=== PATIENT | female | born 1990 | race Caucasian/White ===

== ENCOUNTER 2018-03-29 10:24 | Day surgery (SDC) | payer OTHER ==
[2018-03-29 10:36] VITALS: BMI 31.3
[2018-03-29] MEDS ORDERED: DIPHTH,PERTUSS(ACELL),TET 0.5 ML DISP.SYRIN IM ONE (10:39)
--- NOTE | 2018-03-29 10:48 | PDOC ---
History of Present Illness - General Chief Complaint: Injury Stated Complaint: LACERATED RT FINGER Time Seen by Provider: 03/29/18 10:37 History Source: Patient Exam Limitations: No Limitations - History of Present Illness Initial Comments: 03/29/18 10:37 Laceration to right ring and pinky fingers approximately 12 hours ago, states was cutting onions holding with her right hand/dominant slipped and incised fourth and fifth digits volar aspect. Patient states distending fingers. But sensation appears intact. 03/29/18 11:06 Occurred: reports: this morning (approximate 10 hours ago) Severity: reports: moderate Pain Location: reports: upper extremity (4,5th digits) Past History - Travel Traveled outside of the country in the last 30 days: No Close contact w/someone who was outside of country & ill: No - Past Medical History Allergies/Adverse Reactions: Allergies Allergy/AdvReac Type Severity Reaction Status Date / Time No Known Allergies Allergy Verified 03/29/18 10:35 Home Medications: Ambulatory Orders Naproxen [Naprosyn -] 500 mg PO BID PRN #14 tablet 08/10/14 Sertraline HCl [Zoloft -] 50 mg PO DAILY 08/10/14 COPD: No - Immunization History Immunization Up to Date: Yes - Suicide/Smoking/Psychosocial Hx Smoking History: Current every day smoker Number of Cigarettes Smoked Daily: 3 Information on smoking cessation initiated: No Hx Alcohol Use: Yes Review of Systems - Review of Systems Able to Perform ROS?: Yes Is the patient limited Cymraes proficient: Yes Constitutional: Yes: Symptoms Reported, See HPI, Malaise HEENTM: No: Symptoms Reported Musculoskeletal: Yes: Symptoms Reported, See HPI, Joint Pain Integumentary: Yes: Symptoms Reported, See HPI, Lesions (laceration 4,5) All Other Systems: Reviewed and Negative *Physical Exam - Vital Signs Last Vital Signs Temp Pulse Resp BP Pulse Ox 98 F 91 H 18 119/76 100 03/29/18 10:32 03/29/18 10:32 03/29/18 10:32 03/29/18 10:32 03/29/18 10:32 - Physical Exam General Appearance: Yes: Nourished, Appropriately Dressed, Apparent Distress, Mild Distress HEENT: positive: RAEGAN, Normal ENT Inspection, TMs Normal, Pharynx Normal Neck: positive: Supple Respiratory/Chest: positive: Lungs Clear Gastrointestinal/Abdominal: positive: Soft Musculoskeletal: positive: Normal Inspection Extremity: positive: Normal Range of Motion, Tender Integumentary: positive: Pale, Other (laceration to right fifth and fourth digit volar aspect 1 cm each. Range of motion is limited secondary to pain but is able to flex and extend. 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 Patient is unable to flex and extend fourth digit after PIP and has limited range of motion to fifth digit. Case was discussed with Dr. Anderson who will evaluate patient *DC/Admit/Observation/Transfer Diagnosis at time of Disposition: Laceration of finger of right hand Qualifiers: Encounter type: initial encounter Finger: ring finger Damage to nail status: without damage Foreign body presence: without foreign body Qualified Code(s): S61.214A - Laceration without foreign body of right ring finger without damage to nail, initial encounter - Discharge Dispostion Disposition: HOME Condition at time of disposition: Stable Decision to Admit order: No - Referrals - Patient Instructions Printed Discharge Instructions: DI for Laceration Repair -- Finger Additional Instructions: Rest, elevate, avoid strenuous activity or heavy lifting until sutures are removed Leave dressing on for the next 24 hours, Then may remove dressing gently and wash area with soap and water. Reapply bacitracin ointment and dressing daily for the next 5 days On day #6 keep the wound protected and cover as needed until sutures are removed allowing wound to start to dry May use Tylenol or Motrin for pain relief Suture removal in :10 -12 Days - Post Discharge Activity Forms/Work/School Notes: Back to Work
[2018-03-29 12:53] LABS: BASO % 0.4 % (0-2.0); EOS % 1.6 % (0-4.5); HEMATOCRIT 36.1 % (32.4-45.2); HEMOGLOBIN 12.2 GM/dL (10.7-15.3); LYMPH % 20.6 % (8-40); MCH 28.5 pg (25.7-33.7); MCHC 33.9 g/dl (32.0-36.0); MEAN PLT VOLUME 9.9 fl (7.5-11.1); MONO % 6.7 % (3.8-10.2); NEUT % 70.7 % (42.8-82.8); PLATELET COUNT 261 K/MM3 (134-434); RBC 4.29 M/mm3 (3.60-5.2); RDW 12.9 % (11.6-15.6); WHITE BLOOD COUNT 11.3 K/mm3 (4.0-10.0)
--- NOTE | 2018-03-29 12:54 | HP ---
Admitting History and Physical - Admission Chief Complaint: right hand laceration History of Present Illness: 27yo RHD female PMH 12weeks laceration of right ring and small fingers 12 hours ago while cutting onions. There was not significant blood loss and there is loss of flexion in the ring and small fingers. We were asked to assess and treat. History Source: Patient, Medical Record Limitations to Obtaining History: No Limitations - Smoking History Smoking history: Current every day smoker Aproximately how many cigarettes per day: 3 - Alcohol/Substance Use Hx Alcohol Use: Yes Home Medications - Allergies Allergies/Adverse Reactions: Allergies Allergy/AdvReac Type Severity Reaction Status Date / Time No Known Allergies Allergy Verified 03/29/18 10:35 - Home Medications Home Medications: Ambulatory Orders Naproxen [Naprosyn -] 500 mg PO BID PRN #14 tablet 08/10/14 Sertraline HCl [Zoloft -] 50 mg PO DAILY 08/10/14 Review of Systems - Review of Systems Constitutional: denies: Chills, Fever Eyes: denies: Blurred Vision, Recent Change in Vision HENT: denies: Difficult Swallowing, Throat Pain Neck: denies: Decreased ROM, Pain on Movement Cardiovascular: denies: Chest Pain, Palpitations Respiratory: denies: Cough, SOB Gastrointestinal: denies: Abdominal Pain, Constipation, Vomiting Genitourinary: denies: Burning, Discharge, Dysuria Breasts: reports: No Symptoms Reported. denies: Pain Musculoskeletal: denies: Back Pain, Muscle Pain, Muscle Weakness Integumentary: denies: Lesions, Rash Neurological: denies: Syncope, Tremors Endocrine: denies: Unexplained Weight Gain, Unexplained Weight Loss Hematology/Lymphatic: denies: Easily Bruised, Excessive Bleeding Psychiatric: denies: Anxiety, Depression Physical Examination Vital Signs: Vital Signs Temperature 98 F 03/29/18 10:32 Pulse Rate 91 H 03/29/18 10:32 Respiratory Rate 18 03/29/18 10:32 Blood Pressure 119/76 03/29/18 10:32 O2 Sat by Pulse Oximetry (%) 100 03/29/18 10:32 Constitutional: Yes: No Distress, Calm Eyes: Yes: Conjunctiva Clear, EOM Intact HENT: Yes: Atraumatic, Normocephalic Neck: Yes: Supple, Trachea Midline Cardiovascular: Yes: Regular Rate and Rhythm, S1, S2 Respiratory: Yes: Regular, CTA Bilaterally Gastrointestinal: Yes: Normal Bowel Sounds, Soft. No: Tenderness ...Rectal Exam: Yes: Deferred Renal/: No: CVA Tenderness - Left, CVA Tenderness - Right Extremities: Yes: Other (laceration zone 2 of ring and small fingers). No: Cool , Cyanosis Edema: No Peripheral Pulses WNL: Yes Peripheral Pulses: Left Radial: 2+, Right Radial: 2+, Left Doralis Pedis: 2+, Right Dorsalis Pedis: 2+ Wound/Incision: Yes: Other (volar right ring and small zone 2 full extension with aoute normal resting tenodesis). No: Draining, Reddened, Bleeding Neurological: Yes: Alert, Oriented Psychiatric: Yes: Alert, Oriented Problem List - Problems (1) Flexor tendon laceration, finger, open wound Assessment/Plan: 27yo female PMH laceration of right ring and small fingers zone 2 100% NPO and IVF hydration IV antibiotics Discussed with patient risks, benefits and alternatives of exploration and repair of right ring and small fingers, including but not limited to bleeding, infection, injury to adjacent structures, loss of function, amputation, need for further procedures, ; alternatives include antibiotics, delayed or no surgery - risks of this include failure of nonoperative therapy, loss of fucntion, sepsis, recurrence, . Patient desires to proceed with operation - will take to OR for above. Informed consent signed for same. Thank you for the opportunity to participate in the care of this patient. Code(s): S56.129A - LACERAT FLEXOR MUSC/FASC/TEND UNSP FINGER AT FORARM LV, INIT ; S61.209A - UNSP OPEN WOUND OF UNSP FINGER W/O DAMAGE TO NAIL, INIT Qualifiers: Encounter type: initial encounter Qualified Code(s): S56.129A - Laceration of flexor muscle, fascia and tendon of unspecified finger at forearm level, initial encounter; S61.209A - Unspecified open wound of unspecified finger without damage to nail, initial encounter (2) Laceration of ring finger Code(s): S61.218A - LACERATION W/O FB OF FINGER W/O DAMAGE TO NAIL, INIT Qualifiers: Encounter type: initial encounter Laterality: right (3) Laceration of little finger Code(s): S61.218A - LACERATION W/O FB OF FINGER W/O DAMAGE TO NAIL, INIT Qualifiers: Encounter type: initial encounter Laterality: right (4) Laceration of finger of right hand Code(s): S61.219A - LACERATION W/O FB OF UNSP FINGER W/O DAMAGE TO NAIL, INIT Qualifiers: Encounter type: initial encounter Finger: ring finger Damage to nail status: without damage Foreign body presence: without foreign body Qualified Code(s): S61.214A - Laceration without foreign body of right ring finger without damage to nail, initial encounter (5) Low back strain Code(s): S39.012A - STRAIN OF MUSCLE, FASCIA AND TENDON OF LOWER BACK, INIT
--- NOTE | 2018-03-29 13:09 | OP ---
Operative Note - Note: Operative Date: 03/29/18 Pre-Operative Diagnosis: laceration of right ring and small fingers zone 2 Operation: exploration of right ring and small finger lacerations, repair of flexor tendons zone 2 (Flexor digitorum profundus and superficialis) Findings: 100% lacerations Right Ring and Small fingers FDS and FDP tendons all repaired modified grayson with 2-0 ethibond and proline 6-0 epitendonous repair Post-Operative Diagnosis: Same as Pre-op Surgeon: Yomi Anderson Anesthesiologist/EMPLOYEE DEVELOPMENT DIRECTOR: Tomasz Portillo Anesthesia: Local (scalene block) Estimated Blood Loss (mls): 2 Fluid Volume Replaced (mls): 400 Operative Report Dictated: Yes
[2018-03-29 13:10] LABS: INR 1.09 (0.82-1.09); PROTHROMBIN TIME (PATIENT) 12.3 SEC (9.7-13.0)
[2018-03-29 13:13] LABS: ACTIVATED PTT 24.3 SECONDS (25.2-36.5)
[2018-03-29 13:17] LABS: ALBUMIN 3.4 g/dl (3.4-5.0); ALK PHOS 85 U/L (45-117); ANION GAP 6 (8-16); BILIRUBIN,TOTAL 0.3 mg/dL (0.2-1.0); BLOOD UREA NITROGEN 6 mg/dL (7-18); CALCIUM 9.2 mg/dL (8.5-10.1); CHLORIDE 107 mmol/L (98-107); CO2 25 mmol/L (21-32); CREATININE 0.5 mg/dL (0.55-1.02); GLUCOSE,RANDOM 80 mg/dL (74-106); SGOT/AST 19 U/L (15-37); SGPT/ALT 33 U/L (12-78); SODIUM 138 mmol/L (136-145); TOT PROT 7.2 g/dl (6.4-8.2)
[2018-03-29] MEDS ORDERED: DEXAMETHASONE SOD PHOSPHATE/PF 10 MG/ML SDV ONE (14:24)
[2018-03-29] MEDS ORDERED: BUPIVACAINE HCL/PF 0.5% (5MG/ML) 10 ML VIAL ONE (14:24)
--- NOTE | 2018-03-29 14:28 | DS ---
Physical Examination Vital Signs: Vital Signs Temperature 98.1 F 03/29/18 12:18 Pulse Rate 88 03/29/18 12:18 Respiratory Rate 18 03/29/18 12:18 Blood Pressure 111/66 03/29/18 12:18 O2 Sat by Pulse Oximetry (%) 99 03/29/18 12:18 Vital Signs Period Temp Pulse Resp BP Sys/Barrientos Pulse Ox Last 24 Hr 98 F-98.1 F 88-91 18-18 111-119/66-76 99-100 Constitutional: Yes: Well Nourished, No Distress, Calm Eyes: Yes: Conjunctiva Clear, EOM Intact HENT: Yes: Atraumatic, Normocephalic Neck: Yes: Supple, Trachea Midline Cardiovascular: Yes: Regular Rate and Rhythm, S1, S2 Respiratory: Yes: Regular, CTA Bilaterally Gastrointestinal: Yes: Normal Bowel Sounds, Soft. No: Tenderness ...Rectal Exam: Yes: Deferred Renal/: No: CVA Tenderness - Left, CVA Tenderness - Right Musculoskeletal: No: Muscle Pain, Muscle Weakness Extremities: No: Cool, Cyanosis Edema: No Peripheral Pulses WNL: Yes Peripheral Pulses: Left Radial: 2+, Right Radial: 2+, Left Doralis Pedis: 2+, Right Dorsalis Pedis: 2+ Wound/Incision: Yes: Clean/Dry, Well Approximated, Sutures Intact, Dressing Dry and Intact (Right arm dorsal blocking splint, with tension bands.). No: Draining, Reddened, Bleeding Neurological: Yes: Alert, Oriented Psychiatric: Yes: Alert, Oriented Labs: CBC, BMP 03/29/18 12:26 03/29/18 12:26 Discharge Summary Reason For Visit: FLEXOR TENDON LACERATION OF FINGER WITH OPEN WOUND Current Active Problems Flexor tendon laceration, finger, open wound (Acute) Laceration of finger of right hand (Acute) Laceration of little finger (Acute) Laceration of ring finger (Acute) Procedures: Principal: right ring and small finger exploration and repair of flexor tendons Hospital Course: admitted from the emergency department for urgent surgery. uneventful operative procedure. stable for discharge home. Condition: Improved - Instructions Diet, Activity, Other Instructions: Postoperative instructions: You had a Repair of flexor tendons right ring and small fingers on 03/29/[address] Yomi Anderson of [facility]. Activity: Resume your usual activities gradually, but no heavy exertion or lifting more than 10-15 pounds for 4-6 weeks. Please keep splint clean and dry until first followup appointment in 2 weeks. You may shower daily, with the splint covered. Sutures will need to be recovered in clinic. Eat lightly at first, but advance to your usual diet as tolerated. Pain: For pain, you may use and alternate Tylenol (acetaminophen) and/or ibuprofen every 6 hours each as needed; this means that you can take one OR the other at 3-hour intervals. If you are prescribed a Tylenol/narcotic combination for severe pain, use it instead of plain Tylenol as needed and switch back when your pain starts decreasing. Do not take more than 4000mg of acetaminophen in a day. Take medications as prescribed or indicated on the labeling. Follow-up: Call Dr. Anderson' office at [phone] to make your postop appointment (Saturday 1-2 weeks after surgery as advised). Clinic is held in the [facility] on the first floor of [facility]. Call the office if you have: * increasing pain not responsive to pain medication * fever of 101F or higher * unusual or increasing bleeding or drainage from wounds * increasing redness or swelling at wound sites Also, see your primary medical doctor within 1-2 weeks. Disposition: HOME - Home Medications Comprehensive Discharge Medication List: Ambulatory Orders Naproxen [Naprosyn -] 500 mg PO BID PRN #14 tablet 08/10/14 Sertraline HCl [Zoloft -] 50 mg PO DAILY 08/10/14 Amox-Tr/K Cl [Augmentin - 875Mg Tablet] 1 tab PO BID #14 tablet 03/29/18
[2018-03-29] MEDS ORDERED: LACTATED RINGERS SOLUTION 1,000 ML IV SCH (17:45)
[2018-03-29] MEDS ORDERED: ceFAZolin SODIUM 1 GM VIAL IVPB ONE (18:20)
[2018-03-29] MEDS ORDERED: SODIUM CHLORIDE 0.9% P/F 10 ML VIAL IJ ONE (18:26)
[2018-03-29] MEDS ORDERED: ceFAZolin SODIUM 1 GM VIAL ONE (18:26)
[2018-03-29 22:12] VITALS: BP 134/85; PULSE 95; TEMP 98.2
--- NOTE | 2018-03-31 23:11 | OP ---
DATE OF OPERATION: 03/29/2018 PREOPERATIVE DIAGNOSIS: Laceration, right ring and small finger, zone II. POSTOPERATIVE DIAGNOSIS: Laceration, right ring and small finger, zone II. PROCEDURE: Exploration, right ring finger and small finger lacerations; primary repair of flexor tendon, zone II, including flexor digitorum profundus and flexor digitorum superficialis for those digits. FINDINGS: A 100% laceration, right ring finger and small finger FDS and FDP, zone II. All repaired with modified Hanna 2-0 Ethibond as a core repair and Prolene 6-0 as an epitendinous repair. ATTENDING SURGEON: Yomi Anderson MD ACUTE CARE CERTIFIED NURSING ASSISTANT: Angelito Portillo ANESTHESIA: Extremity block, a scalene block ESTIMATED BLOOD LOSS: 2 mL TOURNIQUET TIME: 43 minutes. TOURNIQUET PRESSURE: 250 mmHg. ESTIMATED INTRAVENOUS FLUID REPLACEMENT: Intravenous fluid 400 mL. INDICATION: Patient is a 27-year-old female presenting after an accidental laceration of right ring and small fingers while cutting an onion in her hand. She presented 12 hours after the injury; was counseled regarding risks, benefits, and alternatives to surgical repair; signed informed consent; was taken for the procedure. DESCRIPTION OF PROCEDURE: Patient was brought to the operating room. She was placed in supine position on the operating table with the right arm extended at 90 degrees perpendicular to the body's midline axis. Areas overlying the right ring and small fingers were prepped and draped into a standard surgical field. Patient had SCDs on lower extremities bilaterally, received intravenous antibiotics. A formal timeout was completed, identifying the operative site and digits. Once completed and with all parties in agreement, I began first with a volar Stan's-type incision scribed over the ring and small fingers with the 15-blade scalpel. With the arm exsanguinated, an incision was made through and through the Stan's incision, opening the flexor tendon. Stay stitches were placed along the flaps to allow for clean midline visualization of the axis of the digit. Time was then taken to inspect the miki system. There appeared to be a laceration through and through the cruciate. The cruciate pulleys 2 and 3. These cruciate incisions were debrided. Accessing the tendon with the ring finger flexed at the distal interphalangeal joint, the distal aspect of the tendon was identified. The FDP was repaired using a 6-0 Prolene as it inserted on the volar plate of the proximal interphalangeal joint. Once this was completed, there was a core repair of the flexor digitorum profundus tendon to its distal aspect using a modified Hanna stitch, laying in the core repair, followed by the 6-0 Prolene for an epitendinous repair. This was done in continuous fashion. After complete, the normal resting tenodesis was restored to the ring finger, we turned our attention to the small finger. In similar fashion, the Stan's incision was opened along the midline axis. The neurovascular bundles were inspected and appeared to be intact. However, the flexor tendon in zone II was lacerated 100%. In similar fashion, the cruciate pulleys were debrided, leaving the second and third annular pulleys in place. Care was then taken to flex the digit at the distal interphalangeal joint, the distal aspect of the profundus tendon. After a core repair of a modified Hanna was laid in and epitendinous repair of 6-0 Prolene in continuous fashion, the flexor digitorum superficialis tendon was then repaired using 6-0 Prolene deep to this repair with the finger flexed to restore its normal anatomy as it inserted on the volar plate. Care was then taken to irrigate both sites and close the skin with 4-0 nylon in interrupted fashion along the length of the Stan's incision. The patient then had sterile dressings placed including Xeroform over the repair, rolled gauze with web space protection. A dorsal flexor-blocking splint was placed to mid forearm, excluding the thumb, index, and middle fingers for function. The tips of the fingers through the nail plate had number 1 Prolene inserted to allow for flexion tension, and these bands were placed post splint placement to flex the digit at the proximal interphalangeal joint and distal in function. Patient was awoken from general anesthesia, having tolerated the procedure well; was given instructions to follow up in a period of 2 weeks. MD VANDANA Gonzalez/[id number]
== END 2018-03-29 21:50 | disposition home or self-care (01) ==
LOC: JER 10:24 → JASUSAT 12:16 → J8W 21:34 → UNDOADMIN 21:34 → UNDODISIN 21:50 → JASUSAT 21:50
PROC: 0LQ70ZZ Repair Right Hand Tendon, Open Approach (ICD-10-PCS; 2018-03-29)
PROC: 0LQ70ZZ Repair Right Hand Tendon, Open Approach (ICD-10-PCS; 2018-03-29)
PROC: 0LQ70ZZ Repair Right Hand Tendon, Open Approach (ICD-10-PCS; 2018-03-29)
PROC: 0LQ70ZZ Repair Right Hand Tendon, Open Approach (ICD-10-PCS; principal; 2018-03-29 17:46)
DX: S66.124A Laceration of flexor muscle, fascia and tendon of right ring finger at wrist and hand level, initial encounter (principal); S66.126A Laceration of flexor muscle, fascia and tendon of right little finger at wrist and hand level, initial encounter; X58.XXXA Exposure to other specified factors, initial encounter; Y93.9 Activity, unspecified; Y92.9 Unspecified place or not applicable
CPT/HCPCS: 36415; 80053; 85025; 85610; 85730; 94760; 99283-25

== ENCOUNTER 2018-09-22 18:05 | Inpatient (IN) | payer OTHER ==
[2018-09-22] MEDS ORDERED: AMPICILLIN - 2 GM in SODIUM CHLORIDE 100 ML IVPB ONE (18:30)
[2018-09-22] MEDS ORDERED: AMPICILLIN SODIUM 2 GM VIAL ONE (18:33)
[2018-09-22] MEDS ORDERED: ELECTROLYTE-148 SOLN 1,000 ML IV SCH (18:45)
[2018-09-22] MEDS ORDERED: TUBERCULIN PPD 5 TU/0.1ML SYRINGE (IN PATIENT USE ONLY) ID ONE (19:00)
[2018-09-22] MEDS: ELECTROLYTE-148 SOLN 1,000 ML IV SCH (19:00)
[2018-09-22 19:07] VITALS: BMI 35.4
[2018-09-22 20:02] LABS: BASO % 0.3 % (0-2.0); EOS % 1.5 % (0-4.5); HEMATOCRIT 36.7 % (32.4-45.2); HEMOGLOBIN 12.7 GM/dL (10.7-15.3); LYMPH % 18.5 % (8-40); MCH 28.3 pg (25.7-33.7); MCHC 34.6 g/dl (32.0-36.0); MEAN CELL VOLUME 81.9 fl (80-96); MEAN PLT VOLUME 11.2 fl (7.5-11.1); NEUT % 70.7 % (42.8-82.8); PLATELET COUNT 189 K/MM3 (134-434); RBC 4.48 M/mm3 (3.60-5.2); RDW 14.7 % (11.6-15.6); WHITE BLOOD COUNT 11.1 K/mm3 (4.0-10.0)
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
[2018-09-22] MEDS ORDERED: BUTORPHANOL TARTRATE 1 MG/ML VIAL ONE ×2 (20:18)
[2018-09-22] MEDS ORDERED: PROMETHAZINE HCL 25 MG/1 ML VIAL ONE (20:18)
[2018-09-22] MEDS ORDERED: BUTORPHANOL TARTRATE 1 MG/ML VIAL IVPUSH ONE (20:21)
[2018-09-22] MEDS ORDERED: PROMETHAZINE HCL 25 MG/1 ML VIAL IVPB ONE (20:21)
[2018-09-22 20:25] LABS: INR 0.92 (0.83-1.09); PROTHROMBIN TIME (PATIENT) 10.8 SEC (9.7-13.0)
[2018-09-22 20:27] LABS: ACTIVATED PTT 22.8 SECONDS (25.2-36.5)
[2018-09-22 20:38] LABS: ANION GAP 7 MMOL/L (8-16); BLOOD UREA NITROGEN 10 mg/dL (7-18); CALCIUM 8.8 mg/dL (8.5-10.1); CHLORIDE 108 mmol/L (98-107); CO2 23 mmol/L (21-32); CREATININE 0.8 mg/dL (0.55-1.3); GLUCOSE,RANDOM 73 mg/dL (74-106); POTASSIUM 4.1 mmol/L (3.5-5.1); SODIUM 139 mmol/L (136-145)
[2018-09-22] MEDS ORDERED: OXYTOCIN 30 UNITS in 0.9% NS 30 UNIT/500 ML INFUS.BAG IVPB ONE (21:57)
[2018-09-22] MEDS ORDERED: AMPICILLIN SODIUM 1 GM VIAL ONE (22:02)
[2018-09-22] MEDS: OXYTOCIN 30 UNITS in 0.9% NS 30 UNIT/500 ML INFUS.BAG IVPB SCH (22:05)
[2018-09-22] MEDS: AMPICILLIN - 1 GM in SODIUM CHLORIDE 100 ML IVPB SCH (22:10)
[2018-09-22] MEDS ORDERED: valACYclovir HCL 1000 MG TABLET PO ONE (22:34)
[2018-09-22] MEDS ORDERED: FENTANYL/BUPIVACAINE/NS/PF - PCEA - 50 ML DISP.SYRIN EP ONE (22:35)
[2018-09-22] MEDS ORDERED: BUPIVACAINE HCL/PF 0.25% (2.5MG/ML) 10 ML VIAL ONE (22:38)
[2018-09-22] MEDS: FENTANYL/BUPIVACAINE/NS/PF - PCEA - 50 ML DISP.SYRIN EP SCH (23:00)
[2018-09-22] MEDS ORDERED: NALOXONE HCL 0.4 MG/ML VIAL IVPUSH PRN (23:23)
[2018-09-23] MEDS ORDERED: AMPICILLIN SODIUM 1 GM VIAL ONE (02:11)
[2018-09-23] MEDS: AMPICILLIN - 1 GM in SODIUM CHLORIDE 100 ML IVPB SCH ×2 (02:15→06:40)
[2018-09-23] MEDS ORDERED: FENTANYL/BUPIVACAINE/NS/PF - PCEA - 50 ML DISP.SYRIN EP ONE (03:38)
[2018-09-23] MEDS ORDERED: OXYTOCIN 20 UNITS in 0.9% NS 20 UNIT/1,000 ML INFUS.BAG IV ONE (04:35)
[2018-09-23] MEDS ORDERED: LIDOCAINE HCL 1% PRESERVATIVE FREE - 30ML VIAL ONE (04:35)
[2018-09-23] MEDS ORDERED: BISACODYL 10 MG SUPP.RECT RC PRN (05:23)
[2018-09-23] MEDS ORDERED: METHYLERGONOVINE MALEATE 0.2 MG/1 ML AMP IM PRN (05:23)
[2018-09-23] MEDS ORDERED: WITCH HAZEL 50% (TUCKS) 40 PAD/JAR PAD TP PRN (05:23)
[2018-09-23] MEDS ORDERED: BENZOCAINE 28 GM HEMORRHOIDAL OINTMENT TP PRN (05:23)
[2018-09-23] MEDS ORDERED: BENZOCAINE 20% 57 GM BOTTLE TP PRN (05:23)
--- NOTE | 2018-09-23 05:30 | PN ---
Delivery - Delivery Vaginal Delivery: No Problems Type of Anesthesia: Epidural Episiotomy/Laceration: None EBL (cc): 200 Delivery, Single - Stages of Labor Date 1st Stage Initiatied: 09/22/18 Time 1st Stage Initiated: 16:30 Date 2nd Stage Initiated: 09/23/18 Time 2nd Stage Initiated: 04:45 Date of Delivery: 09/23/18 Time of Delivery: 05:07 Date Placenta Delivered: 09/23/18 Time Placenta Delivered: 05:10 Placenta: Yes: Spontaneous - Condition of Infant Clinical Research Assistant/Carpentry Instructor Present: No Gender: Male Position: Left, OA - 1 Minute Total Score: 9 5 Minutes Total Score: 9 - Feeding Plan Initial Plan: Elected not to breastfeed exclusively throughout hospitalization Benefits of Exclusively reinforced: Yes Remarks - Remarks Remarks: Uncomplicated delivery of the head, shoulders and placenta
[2018-09-23 05:50] LABS: ARTERIAL BLD GAS O2 SATURATION 95.7 % (90-98.9); ARTERIAL BLOOD GAS BASE EXCESS -6.2 meq/l (-2-2); ARTERIAL BLOOD GAS PCO2 31.1 mmHg (35-45); ARTERIAL BLOOD GAS PO2 63.5 mmHg (80-100); ARTERIAL BLOOD GAS pH 7.37 (7.35-7.45)
[2018-09-23 05:58] LABS: VENOUS PC02 29.4 mmHg (38-52); VENOUS PH 7.39 (7.32-7.42)
[2018-09-23] MEDS ORDERED: OXYTOCIN 20 UNITS in 0.9% NS 20 UNIT/1,000 ML INFUS.BAG IV SCH (06:15)
[2018-09-23] MEDS: PRENATAL VITAMINS W/ FOLIC ACID TABLET (FP) PO SCH (10:00)
[2018-09-23] MEDS: FERROUS SO4 325 MG TABLET (FP) PO SCH ×2 (10:00→22:10)
[2018-09-23] MEDS: IBUPROFEN 600 MG TABLET (FP) PO PRN (18:13)
[2018-09-23] MEDS: ACETAMINOPHEN 325 MG TABLET (FP) PO PRN (18:14)
[2018-09-24] MEDS: OXYTOCIN 30 UNITS in 0.9% NS 30 UNIT/500 ML INFUS.BAG IVPB SCH (02:11)
[2018-09-24] MEDS: ELECTROLYTE-148 SOLN 1,000 ML IV SCH (02:11)
[2018-09-24] MEDS: AMPICILLIN - 1 GM in SODIUM CHLORIDE 100 ML IVPB SCH (02:11)
[2018-09-24] MEDS: ACETAMINOPHEN 325 MG TABLET (FP) PO PRN ×3 (02:14→19:53)
[2018-09-24] MEDS: IBUPROFEN 600 MG TABLET (FP) PO PRN ×3 (02:15→19:52)
[2018-09-24] MEDS: FENTANYL/BUPIVACAINE/NS/PF - PCEA - 50 ML DISP.SYRIN EP SCH (02:19)
[2018-09-24 07:49] LABS: BASO % 0.5 % (0-2.0); EOS % 2.3 % (0-4.5); HEMATOCRIT 37.1 % (32.4-45.2); HEMOGLOBIN 11.9 GM/dL (10.7-15.3); LYMPH % 24.8 % (8-40); MCH 26.8 pg (25.7-33.7); MCHC 32.2 g/dl (32.0-36.0); MEAN CELL VOLUME 83.3 fl (80-96); MEAN PLT VOLUME 10.4 fl (7.5-11.1); MONO % 8.4 % (3.8-10.2); PLATELET COUNT 180 K/MM3 (134-434); RBC 4.45 M/mm3 (3.60-5.2); RDW 15.2 % (11.6-15.6); WHITE BLOOD COUNT 12.6 K/mm3 (4.0-10.0)
[2018-09-24] MEDS: FERROUS SO4 325 MG TABLET (FP) PO SCH ×2 (09:00→20:59)
[2018-09-24] MEDS: PRENATAL VITAMINS W/ FOLIC ACID TABLET (FP) PO SCH (09:01)
--- NOTE | 2018-09-24 13:06 | PN ---
Post Progress Note - Subjective Subjective: Patient without acute complaints. Reports tolerating oral intake without nausea or vomiting. Ambulating without dizziness. Denies fevers or chills. Pain well controlled with oral pain medication. without difficulty. Passing flatus. Post Day: 1 Type of Delivery: Vital Signs: Vital Signs Temperature 97.5 F L 09/24/18 08:11 Pulse Rate 82 09/24/18 08:11 Respiratory Rate 20 09/24/18 08:11 Blood Pressure 114/79 09/24/18 08:11 O2 Sat by Pulse Oximetry (%) 98 09/23/18 04:30 Breast Exam: Yes: Soft Uterus: Yes: Fundus Firm, Fundus below umbilicus Abdomen/GI: Yes: Abdomen soft, Passing flatus, Tolerating PO. No: Tender Lochia: Yes: Serosa Lochia, amount: Moderate Extremities: Yes: Calves non-tender, Edema (trace) Activity: Ambulating - Labs Labs: CBC WBC 12.6 K/mm3 (4.0-10.0) H 09/24/18 07:00 RBC 4.45 M/mm3 (3.60-5.2) 09/24/18 07:00 Hgb 11.9 GM/dL (10.7-15.3) 09/24/18 07:00 Hct 37.1 % (32.4-45.2) 09/24/18 07:00 MCV 83.3 fl (80-96) 09/24/18 07:00 MCH 26.8 pg (25.7-33.7) 09/24/18 07:00 MCHC 32.2 g/dl (32.0-36.0) 09/24/18 07:00 RDW 15.2 % (11.6-15.6) 09/24/18 07:00 Plt Count 180 K/MM3 (134-434) 09/24/18 07:00 MPV 10.4 fl (7.5-11.1) 09/24/18 07:00 Absolute Neuts (auto) 8.1 K/mm3 (1.5-8.0) H 09/24/18 07:00 Neutrophils % 64.0 % (42.8-82.8) 09/24/18 07:00 Lymphocytes % 24.8 % (8-40) D 09/24/18 07:00 Monocytes % 8.4 % (3.8-10.2) 09/24/18 07:00 Eosinophils % 2.3 % (0-4.5) 09/24/18 07:00 Basophils % 0.5 % (0-2.0) 09/24/18 07:00 Nucleated RBC % 0 % (0-0) 09/24/18 07:00 Assessment/Plan 28 yo PPD #1 s/p , afebrile, vital signs stable, doing well 1. Continue routine care. 2. AM CBC without signs of anemia 3. Rh positive status, no rhogam indicated. 4. Encourage ambulation 5. Continue oral pain medication 6. Patient states desires circumcision for . Discussed risks including infection, bleeding, damage to tip of penis, and unsatisfactory result, resulting in surgical repair or repeat circumcision. Patient expressed understanding and consents to procedure. Reviewed infants chart, cleared for circumcision and normal genitalia per bank examiner, Dr. Anaya 7. Anticipate discharge home day #2
[2018-09-24] MEDS ORDERED: SENNOSIDES/DOCUSATE COMBO (SENNA PLUS) TABLET (UD) PO PRN (22:00)
--- NOTE | 2018-09-25 07:49 | PN ---
Post Progress Note - Subjective Subjective: Patient without acute complaints. Reports tolerating oral intake without nausea or vomiting. Ambulating without dizziness. Denies fevers or chills. Pain well controlled with oral pain medication. Passing flatus. Post Day: 2 Type of Delivery: Vital Signs: Vital Signs Temperature 97.9 F 09/24/18 21:00 Pulse Rate 98 H 09/24/18 21:00 Respiratory Rate 20 09/24/18 21:00 Blood Pressure 116/69 09/24/18 21:00 O2 Sat by Pulse Oximetry (%) 98 09/23/18 04:30 Breast Exam: Yes: Soft Uterus: Yes: Fundus Firm, Fundus below umbilicus Abdomen/GI: Yes: Abdomen soft, Passing flatus, Tolerating PO. No: Abdominal Distention, Tender Lochia: Yes: Serosa Lochia, amount: Small Extremities: Yes: Calves non-tender, Edema (trace) Perineum: Yes: Intact Activity: Ambulating - Labs Labs: CBC WBC 12.6 K/mm3 (4.0-10.0) H 09/24/18 07:00 RBC 4.45 M/mm3 (3.60-5.2) 09/24/18 07:00 Hgb 11.9 GM/dL (10.7-15.3) 09/24/18 07:00 Hct 37.1 % (32.4-45.2) 09/24/18 07:00 MCV 83.3 fl (80-96) 09/24/18 07:00 MCH 26.8 pg (25.7-33.7) 09/24/18 07:00 MCHC 32.2 g/dl (32.0-36.0) 09/24/18 07:00 RDW 15.2 % (11.6-15.6) 09/24/18 07:00 Plt Count 180 K/MM3 (134-434) 09/24/18 07:00 MPV 10.4 fl (7.5-11.1) 09/24/18 07:00 Absolute Neuts (auto) 8.1 K/mm3 (1.5-8.0) H 09/24/18 07:00 Neutrophils % 64.0 % (42.8-82.8) 09/24/18 07:00 Lymphocytes % 24.8 % (8-40) D 09/24/18 07:00 Monocytes % 8.4 % (3.8-10.2) 09/24/18 07:00 Eosinophils % 2.3 % (0-4.5) 09/24/18 07:00 Basophils % 0.5 % (0-2.0) 09/24/18 07:00 Nucleated RBC % 0 % (0-0) 09/24/18 07:00 Assessment/Plan 28 yo PPD #2 s/p , afebrile, vital signs stable, doing well 1. Patient stable for discharge home today. 2. Patient encouraged to contact MD for: - Severe pain not controlled by oral pain medication - Fevers or chills - Nausea or vomiting, intolerance of oral intake 3. Patient to follow up in office in 4-6 weeks for visit
--- NOTE | 2018-09-25 07:53 | DS ---
Physical Exam-CQ DEVELOPER Vital Signs: Vital Signs Temperature 97.9 F 09/24/18 21:00 Pulse Rate 98 H 09/24/18 21:00 Respiratory Rate 20 09/24/18 21:00 Blood Pressure 116/69 09/24/18 21:00 O2 Sat by Pulse Oximetry (%) 98 09/23/18 04:30 Labs: CBC, BMP 09/24/18 07:00 09/22/18 19:30 Delivery - Delivery Vaginal Delivery: No Problems Type of Anesthesia: Epidural Episiotomy/Laceration: None EBL (cc): 200 Delivery, Single - Stages of Labor Date 1st Stage Initiatied: 09/22/18 Time 1st Stage Initiated: 16:30 Date 2nd Stage Initiated: 09/23/18 Time 2nd Stage Initiated: 04:45 Date of Delivery: 09/23/18 Time of Delivery: 05:07 Time Placenta Delivered: 05:10 Placenta: Yes: Spontaneous - Condition of Inspector Rag Sorting/Metal Painter Present: No Infant Gender: Male Weight: 7 lb Position: Left, OA Total Hours ROM (Hrs/Mins): 0Hrs/25Mins - 1 Minute Total Score: 9 5 Minutes Total Score: 9 - [place] Feeding Plan Initial Plan: Elected not to breastfeed exclusively throughout hospitalization Benefits of Exclusively reinforced: Yes Discharge Summary Reason For Visit: LABOR Current Active Problems Vaginal delivery (Acute) Procedures: Principal: Vaginal Delivery Hospital Course: Patient was admitted in active labor, proceeded to deliver via . PPD # 1 patient ambulated, voiding, passing gas, tolerating oral intake and with adequate pain control. She fulfilled all criteria for discharge PPD #2 Condition: Good - Instructions Diet, Activity, Other Instructions: Physical activity Resume your normal everyday activity as tolerated no heavy lifting or exercise until seen by your surgeon. You may walk unlimited laekisha of and climb stairs. You may resume driving the car when you feel safe and comfortable behind the wheel. No sexual activity as instructed. Diet There are no dietary restrictions. Eat healthy, high-fiber foods. Drink 6 to 8 glasses of liquid each day. This will assist in keeping your bowels are regular. Pain management You may take Tylenol or acetaminophen or Ibuprofen (for example, Motrin, Advil etc.) from my pain prescription medication is ordered should be taken as prescribed for moderate to severe pain. Call MD for any of the following: Severe pain not relieved by medication Fever of 101 or higher Excessive bleeding or drainage on dressing Inability to urinate Referrals: Krissy Lewis MD [Staff Physician] - Disposition: HOME - Home Medications Comprehensive Discharge Medication List: Ambulatory Orders Vit 108/Iron/Folic AC [ One Tablet] 1 each PO DAILY 09/20/18
[2018-09-25] MEDS: IBUPROFEN 600 MG TABLET (FP) PO PRN (08:28)
[2018-09-25] MEDS: ACETAMINOPHEN 325 MG TABLET (FP) PO PRN (08:29)
[2018-09-25 09:40] VITALS: BP 131/89; PULSE 85; TEMP 97.6
[2018-09-25] MEDS: FERROUS SO4 325 MG TABLET (FP) PO SCH (10:10)
[2018-09-25] MEDS: PRENATAL VITAMINS W/ FOLIC ACID TABLET (FP) PO SCH (10:10)
== END 2018-09-25 10:55 | disposition home or self-care (01) | DRG 807 ==
LOC: JDEL 18:05 → JLDR 18:06 → J3W 09-23 08:12
PROVIDERS: ADMIT Obstetrics & Gynecology; ATTEND Obstetrics & Gynecology
PROC: 10E0XZZ Delivery of Products of Conception, External Approach (ICD-10-PCS; principal; 2018-09-23)
DX: O99.214 Obesity complicating childbirth (principal); Z37.0 Single live birth; E66.9 Obesity, unspecified; Z22.330 Carrier of Group B streptococcus; Z3A.37 37 weeks gestation of pregnancy
CPT/HCPCS: 36415; 36600; 59409; 80048; 82803; 85025; 85610; 85730; 86593; 86850; 86900; 86901; 87389